=== PATIENT | male | born 1965 | race Caucasian/White ===

== ENCOUNTER 2022-08-23 13:48 | Emergency (ER) | payer MEDICAID ==
[~2022-08-23] VITALS: Ht 175.3 cm; Wt 74.8 kg
[2022-08-23 13:50] VITALS: BP_SYST 131
[2022-08-23] MEDS ORDERED: CEPH-548 PO (14:41)
[2022-08-23] MEDS ORDERED: SULF1TAB47 PO (14:41)
== END 2022-08-23 14:58 ==
LOC: SED 13:48
DX: L03.012 Cellulitis of left finger (principal); Z86.14 Personal history of Methicillin resistant Staphylococcus aureus infection; Z79.899 Other long term (current) drug therapy
CPT/HCPCS: 73140-TC; 99283